=== PATIENT | male | born 1995 | race Caucasian/White ===

== ENCOUNTER 2017-05-12 14:41 | Observation (INO) | payer BC, OTHER ==
[~2017-05-12] VITALS: Ht 177.8 cm; Wt 88.0 kg
[2017-05-12] MEDS ORDERED: SODIUM CHLORIDE 0.9% 1000ML 1,000 ML IV ONE (15:30)
[2017-05-12] MEDS ORDERED: SERT-234 PO (15:30)
[2017-05-12] MEDS ORDERED: FLUT0.15 NAE (15:30)
[2017-05-12] MEDS ORDERED: LORA-741 PO (15:30)
--- NOTE | 2017-05-12 15:40 | EMERGENCY ROOM VISIT NOTE ---
History First contact with patient: 15:17 Chief Complaint: ABDOMINAL PAIN Stated Complaint: ABD. PAIN Nursing Triage Summary: right sided abd pain sent in by urgent care, pain started today History of Present Illness The patient is a 21 year old male who presents to the Emergency Room with complaints of abdominal pain that started at approximately 6 AM this morning. The patient describes it as a cramping sensation. It is in the central abdomen and in the right lower abdomen. He tried to go to class, but the pain kept getting worse. It is exacerbated with movement. He denies any nausea or vomiting. No diarrhea. He had a normal bowel movement yesterday. He denies any fever or chills. He denies any urinary symptoms. The patient was first seen at [facility]. He was sent emergency department for further evaluation. Review of Systems 10 system review performed and negative unless noted in HPI or below Past Medical/Surgical History Medical Problems: (1) No significant active problems Social History Smoking Status: Never Smoker Alcohol Use: occasionally Drug Use: none Marital Status: single Housing Status: lives with roommate Occupation Status: [employer] student Current/Historical Medications Scheduled Fluticasone Propionate (Nasal) (Flonase Allergy Relief), 1 SPRAY AMAN DAILY Sertraline (Zoloft), 100 MG PO QPM Scheduled PRN Lorazepam (Ativan), 0.5 MG PO DAILY PRN for Anxiety Physical Exam Vital Signs Date Time Temp Pulse Resp B/P (MAP) Pulse Ox O2 Delivery O2 Flow Rate FiO2 05/12/17 22:16 53 18 122/64 99 05/12/17 20:44 57 18 133/51 100 05/12/17 18:44 61 18 141/75 99 Room Air 05/12/17 17:50 63 18 125/70 100 Room Air 05/12/17 15:50 63 18 128/72 100 Room Air 05/12/17 14:43 36.9 82 16 132/75 97 Physical Exam VITALS: Vitals are noted on the nurse's note and reviewed by myself. Vital signs stable. GENERAL: 21-year-old male, in no acute distress, nondiaphoretic, well-developed well-nourished. SKIN: The skin was without rashes, erythema, edema, or bruising. HEAD: Normocephalic atraumatic. MOUTH: Mucous membranes moist. NECK: No lymphadenopathy. No JVD. HEART: Regular rate and rhythm without murmurs gallops or rubs. LUNGS: Clear to auscultation bilaterally without wheezes, rales or rhonchi. No accessory muscle use. ABDOMEN: Positive bowel sounds x 4.Soft, tenderness to palpation in the right lower quadrant.organomegaly. No guarding pain with heel tap. Negative Rovsing sign. MUSCULOSKELETAL: No muscle atrophy, erythema, or edema noted. Strength 5/5 throughout. NEURO: Patient was alert and oriented to person place and time. Normal sensation to touch. No focal neurological deficits. Medical Decision & Procedures ER Provider Diagnostic Interpretation: ABD/PELVIS IV AND ORAL CONT HISTORY: 21 years-old Male acute right lower quadrant abdominal pain COMPARISON: None available TECHNIQUE: Multiple axial CT images of the abdomen and pelvis were obtained following the intravenous administration of 120 mL Optiray 320. Oral contrast was also administered. A dose lowering technique was used consistent with the principals of SAVI. FINDINGS: Imaged lung bases are clear with the exception of mild right basilar subsegmental atelectasis. There is no pneumoperitoneum. The imaged inferior cardiac chambers are unremarkable. The liver, gallbladder, spleen, pancreas and adrenal glands appear normal. Bilateral kidneys appear normal. Urinary bladder and prostate are within normal limits. The abdominal aorta is normal in both course and caliber. No bulky retroperitoneal adenopathy. There is no bowel obstruction. There is mild dilation of the mid and distal appendix measuring up to 9 mm with associated mild adjacent inflammatory stranding suggesting early acute appendicitis. No evidence of perforation or abscess. Soft tissues are within normal limits. The bones appear intact. Multilevel Schmorl's nodes are seen within the lower thoracic and upper lumbar spine. IMPRESSION: 1. Mild dilation of the mid and distal appendiceal lumen with surrounding mild inflammatory stranding suggests early acute uncomplicated appendicitis. 2. Multiple Schmorl's nodes of the lower thoracic and upper lumbar spine incidentally noted. These findings could reflect Scheuermann's disease in the appropriate clinical setting. The above report was generated using voice recognition software. It may contain grammatical, syntax or spelling errors. Electronically signed by: Lucio Babcock M.D. 05/12/2017 6:19 PM Dictated Date/Time: 05/12/2017 6:00 PM The status of this report is Signed. Draft = Not yet reviewed or approved by Radiologist. Signed = Reviewed and approved by Radiologist. <AttendingPhy></AttendingPhy> <FamilyPhy>No Doctor, Assigned</FamilyPhy> < PrimaryPhy>No Doctor, Assigned</PrimaryPhy> <UnitNumber>[id number]</UnitNumber> <VisitNumber>[id number]</ Laboratory Results 05/12/17 15:35 Red Blood Count 4.87, Mean Corpuscular Volume 86.0, Mean Corpuscular Hemoglobin 29.8, Mean Corpuscular Hemoglobin Concent 34.6, Mean Platelet Volume 9.1, Neutrophils (%) (Auto) 73.6, Lymphocytes (%) (Auto) 16.1, Monocytes (%) (Auto) 9.4, Eosinophils (%) (Auto) 0.5, Basophils (%) (Auto) 0.1, Neutrophils # (Auto) 10.87, Lymphocytes # (Auto) 2.38, Monocytes # (Auto) 1.39, Eosinophils # (Auto) 0.07, Basophils # (Auto) 0.02 05/12/17 15:35 Test 05/12/17 15:35 05/12/17 15:55 White Blood Count 14.77 K/uL (4.8-10.8) Red Blood Count 4.87 M/uL (4.7-6.1) Hemoglobin 14.5 g/dL (14.0-18.0) Hematocrit 41.9 % (42-52) Mean Corpuscular Volume 86.0 fL (80-100) Mean Corpuscular Hemoglobin 29.8 pg (25-34) Mean Corpuscular Hemoglobin Concent 34.6 g/dl (32-36) Platelet Count 302 K/uL (130-400) Mean Platelet Volume 9.1 fL (7.4-10.4) Neutrophils (%) (Auto) 73.6 % Lymphocytes (%) (Auto) 16.1 % Monocytes (%) (Auto) 9.4 % Eosinophils (%) (Auto) 0.5 % Basophils (%) (Auto) 0.1 % Neutrophils # (Auto) 10.87 K/uL (1.4-6.5) Lymphocytes # (Auto) 2.38 K/uL (1.2-3.4) Monocytes # (Auto) 1.39 K/uL (0.11-0.59) Eosinophils # (Auto) 0.07 K/uL (0-0.5) Basophils # (Auto) 0.02 K/uL (0-0.2) RDW Standard Deviation 38.6 fL (36.4-46.3) RDW Coefficient of Variation 12.2 % (11.5-14.5) Immature Granulocyte % (Auto) 0.3 % Immature Granulocyte # (Auto) 0.04 K/uL (0.00-0.02) Anion Gap 7.0 mmol/L (3-11) Est Creatinine Clear Calc Drug Dose 119.7 ml/min Estimated GFR () 111.4 Estimated GFR (Non- 96.1 BUN/Creatinine Ratio 12.5 (10-20) Calcium Level 9.4 mg/dl (8.5-10.1) Total Bilirubin 0.7 mg/dl (0.2-1) Aspartate Amino Transf (AST/SGOT) 35 U/L (15-37) Alanine Aminotransferase (ALT/SGPT) 40 U/L (12-78) Alkaline Phosphatase 66 U/L (45-117) Total Protein 8.2 gm/dl (6.4-8.2) Albumin 4.5 gm/dl (3.4-5.0) Globulin 3.7 gm/dl (2.5-4.0) Albumin/Globulin Ratio 1.2 (0.9-2) Lipase 95 U/L (73-393) Urine Color YELLOW Urine Appearance CLEAR (CLEAR) Urine pH 7.5 (4.5-7.5) Urine Specific [place] 1.017 (1.000-1.030) Urine Protein NEG (NEG) Urine Glucose (UA) NEG (NEG) Urine Ketones NEG (NEG) Urine Occult Blood NEG (NEG) Urine Nitrite NEG (NEG) Urine Bilirubin NEG (NEG) Urine Urobilinogen NEG (NEG) Urine Leukocyte Esterase NEG (NEG) Medications Administered Medications (Trade) Dose Ordered Sig/Lorne Route Start Time Stop Time Status Last Admin Dose Admin Sodium Chloride 1,000 ml @ 999 mls/hr Q1H1M ONCE IV 05/12/17 15:30 05/12/17 16:30 DC 05/12/17 15:49 999 MLS/HR Piperacillin Sod/ Tazobactam Sod 3.375 gm/Dextrose 115 ml @ 230 mls/hr NOW ONCE IV 05/12/17 20:30 05/12/17 20:59 DC 05/12/17 20:42 230 MLS/HR ED Course Patient was seen and examined Vital signs including blood pressure were reviewed medications list was verified with patient Labs were obtained, and a saline lock was established The patient was hydrated with 1 L of normal saline The patient was reassessed and resting comfortably. He again declined pain medication. CT of the abdomen and pelvis were performed. The findings were reviewed with the patient and the patient's mother. I spoke with general surgery. They agreed to evaluate the patient Dr. Son evaluated the patient in the ED. He was taken to the OR for an appendectomy. Medical Decision DIFFERENTIAL DIAGNOSIS: Gastroenteritis, Hepatitis, cholecystitis, cholangitis, biliary colic, pancreatitis, appendicitis, inguinal hernia, nephrolithiasis, inflammatory bowel disease, mesenteric adenitis, peptic ulcer disease, GERD, gastritis, pancreatitis,, bowel obstruction, splenic infarct, diverticulitis, mesenteric ischemia, metabolic, peritonitis, among others. This patient is a 21-year-old male presents emergency department with complaints of mid and right lower abdominal pain and mild nausea starting this morning. On exam, the patient did have tenderness in the right lower quadrant. There is leukocytosis. A CT of the abdomen and pelvis confirmed an early appendicitis. The patient was taken to the OR by general surgery for an appendectomy. This chart was completed in part utilizing [employer] Voice Speech Voice Recognition software. Attempts were made to minimize the grammatical errors, random word insertions, pronoun errors and incomplete sentences. Any formal questions or concerns about the content, text or information contained within the body of this dictation should be directly addressed to the provider for clarification. Blood Pressure Screening Patient's blood pressure: Normal blood pressure Consults Consulting Physician: Dr. Son Impression Primary Impression: Appendicitis Departure Information Referrals No Doctor, Assigned (PCP) Patient Instructions [facility]
[2017-05-12] MEDS ORDERED: OPTIRAY 320 IV PRN (15:45)
[2017-05-12 15:47] LABS: BASO % 0.1 %; BASO ABS # 0.02 K/uL (0-0.2); COMPLETE YES; EOS % 0.5 %; HEMATOCRIT 41.9 % (42-52); IG% 0.3 %; LYMPH % 16.1 %; LYMPH ABS # 2.38 K/uL (1.2-3.4); MEAN CORPUSCULAR HEMOGLOBIN 29.8 pg (25-34); MEAN CORPUSCULAR HGB CONC 34.6 g/dl (32-36); MEAN PLATELET VOLUME 9.1 fL (7.4-10.4); MONO % 9.4 %; NEUT % 73.6 %; PLATELET COUNT 302 K/uL (130-400); RED BLOOD COUNT 4.87 M/uL (4.7-6.1); WHITE BLOOD COUNT 14.77 K/uL (4.8-10.8)
[2017-05-12 16:03] LABS: BUN/CREATININE RATIO 12.5 (10-20); CALCIUM 9.4 mg/dl (8.5-10.1); CREATININE 1.1 mg/dl (0.60-1.40); POTASSIUM 3.9 mmol/L (3.5-5.1)
[2017-05-12 16:06] LABS: ALB/GLOB RATIO 1.2 (0.9-2)
[2017-05-12 16:13] LABS: URINE APPEARANCE CLEAR (CLEAR); URINE BILIRUBIN NEG (NEG); URINE COLOR YELLOW; URINE NITRITE NEG (NEG); URINE PH 7.5 (4.5-7.5); URINE SPECIFIC GRAVITY 1.017 (1.000-1.030); UROBILINOGEN NEG (NEG)
[2017-05-12 16:14] LABS: MANUAL MICROSCOPIC REQUIRED? NO; REVIEW REQ? NO
--- NOTE | 2017-05-12 18:21 | DIAGNOSTIC IMAGING REPORT ---
ABD/PELVIS IV AND ORAL CONT HISTORY: 21 years-old Male acute right lower quadrant abdominal pain COMPARISON: None available TECHNIQUE: Multiple axial CT images of the abdomen and pelvis were obtained following the intravenous administration of 120 mL Optiray 320. Oral contrast was also administered. A dose lowering technique was used consistent with the principals of SAVI. FINDINGS: Imaged lung bases are clear with the exception of mild right basilar subsegmental atelectasis. There is no pneumoperitoneum. The imaged inferior cardiac chambers are unremarkable. The liver, gallbladder, spleen, pancreas and adrenal glands appear normal. Bilateral kidneys appear normal. Urinary bladder and prostate are within normal limits. The abdominal aorta is normal in both course and caliber. No bulky retroperitoneal adenopathy. There is no bowel obstruction. There is mild dilation of the mid and distal appendix measuring up to 9 mm with associated mild adjacent inflammatory stranding suggesting early acute appendicitis. No evidence of perforation or abscess. Soft tissues are within normal limits. The bones appear intact. Multilevel Schmorl's nodes are seen within the lower thoracic and upper lumbar spine. IMPRESSION: 1. Mild dilation of the mid and distal appendiceal lumen with surrounding mild inflammatory stranding suggests early acute uncomplicated appendicitis. 2. Multiple Schmorl's nodes of the lower thoracic and upper lumbar spine incidentally noted. These findings could reflect Scheuermann's disease in the appropriate clinical setting. The above report was generated using voice recognition software. It may contain grammatical, syntax or spelling errors. Electronically signed by: Lucio Babcock M.D. 05/12/2017 6:19 PM Dictated Date/Time: 05/12/2017 6:00 PM
[2017-05-12] MEDS ORDERED: PIPERACILLIN/TAZOBACTAM 3.375 GM/100ML D5W IV STA (20:14)
[2017-05-12] MEDS ORDERED: PIPERACILL/TAZOBAC IV 3.375 GM in DEXTROSE 5% 100ML IV ONE (20:30)
[2017-05-12] MEDS ORDERED: BUPIVACAINE 0.5 % 5 MG/1 ML MPF 30ML VIAL ONE (21:24)
--- NOTE | 2017-05-12 21:28 | History and Physical ---
History & Physical Date May 12, 2017. Chief Complaint abdominal pain History of Present Illness The patient is a 21 year old male with complaints of abdominal pain. Woke him from sleep this morning. Pain was crampy, periumbilical. Mild anorexia, no nausea or vomiting, no fevers. Loose bm upon arrival to ED. Pain migrated to RLQ. Improved with pain meds in ED, was worse with walking. No prior episodes , no personal or family history of inflammatory bowel disease or colorectal cancer. Past Medical/Surgical History Past Medical History: Depression mild asthma Past Surgical History: wisdom teeth no prior abdominal surgery Social history: [employer] student. Denies tobacco, occasional alcohol Family history: Maternal great grandfather with colon cancer, otherwise no significant family history Additional History Hepatic Disease: No Endocrine Disorder: No Kidney Disease: No Hypertension: No Heart Disease: No Bleeding Tendencies: No Infectious Diseases: No Other: 10 point review of systems completed and negative except as reported above Allergies Coded Allergies: No Known Allergies (Unverified , 11/03/15) Home Medications Scheduled Fluticasone Propionate (Nasal) (Flonase Allergy Relief), 1 SPRAY AMAN DAILY Sertraline (Zoloft), 100 MG PO QPM Scheduled PRN Lorazepam (Ativan), 0.5 MG PO DAILY PRN for Anxiety Physical Examination Skin: warm/dry, no rash Eyes: normal inspection, EOMI, sclerae normal ENT: normal ENT inspection, pharynx normal Head: normocephalic, atraumatic Respiratory/Chest: lungs clear, normal breath sounds, no respiratory distress Cardiovascular: regular rate, rhythm, no edema, no murmur Abdomen / GI: normal bowel sounds, + pertinent finding (soft, tender to palpation in RLQ over Mcburney's point with localized guarding. ) Back: normal inspection Extremities: normal inspection, normal range of motion Neurologic/Psych: no motor/sensory deficits, alert, normal reflexes, oriented x 3 Addiitonal Comments: Last 24 Hours Test 05/12/17 15:35 05/12/17 15:55 White Blood Count 14.77 K/uL Red Blood Count 4.87 M/uL Hemoglobin 14.5 g/dL Hematocrit 41.9 % Mean Corpuscular Volume 86.0 fL Mean Corpuscular Hemoglobin 29.8 pg Mean Corpuscular Hemoglobin Concent 34.6 g/dl Platelet Count 302 K/uL Mean Platelet Volume 9.1 fL Neutrophils (%) (Auto) 73.6 % Lymphocytes (%) (Auto) 16.1 % Monocytes (%) (Auto) 9.4 % Eosinophils (%) (Auto) 0.5 % Basophils (%) (Auto) 0.1 % Neutrophils # (Auto) 10.87 K/uL Lymphocytes # (Auto) 2.38 K/uL Monocytes # (Auto) 1.39 K/uL Eosinophils # (Auto) 0.07 K/uL Basophils # (Auto) 0.02 K/uL RDW Standard Deviation 38.6 fL RDW Coefficient of Variation 12.2 % Immature Granulocyte % (Auto) 0.3 % Immature Granulocyte # (Auto) 0.04 K/uL Sodium Level 137 mmol/L Potassium Level 3.9 mmol/L Chloride Level 103 mmol/L Carbon Dioxide Level 27 mmol/L Anion Gap 7.0 mmol/L Blood Urea Nitrogen 14 mg/dl Creatinine 1.10 mg/dl Est Creatinine Clear Calc Drug Dose 119.7 ml/min Estimated GFR () 111.4 Estimated GFR (Non- 96.1 BUN/Creatinine Ratio 12.5 Random Glucose 94 mg/dl Calcium Level 9.4 mg/dl Total Bilirubin 0.7 mg/dl Aspartate Amino Transf (AST/SGOT) 35 U/L Alanine Aminotransferase (ALT/SGPT) 40 U/L Alkaline Phosphatase 66 U/L Total Protein 8.2 gm/dl Albumin 4.5 gm/dl Globulin 3.7 gm/dl Albumin/Globulin Ratio 1.2 Lipase 95 U/L Urine Color YELLOW Urine Appearance CLEAR Urine pH 7.5 Urine Specific [employer] 1.017 Urine Protein NEG Urine Glucose (UA) NEG Urine Ketones NEG Urine Occult Blood NEG Urine Nitrite NEG Urine Bilirubin NEG Urine Urobilinogen NEG Urine Leukocyte Esterase NEG Imaging: ABD/PELVIS IV AND ORAL CONT HISTORY: 21 years-old Male acute right lower quadrant abdominal pain COMPARISON: None available TECHNIQUE: Multiple axial CT images of the abdomen and pelvis were obtained following the intravenous administration of 120 mL Optiray 320. Oral contrast was also administered. A dose lowering technique was used consistent with the principals of SAVI. FINDINGS: Imaged lung bases are clear with the exception of mild right basilar subsegmental atelectasis. There is no pneumoperitoneum. The imaged inferior cardiac chambers are unremarkable. The liver, gallbladder, spleen, pancreas and adrenal glands appear normal. Bilateral kidneys appear normal. Urinary bladder and prostate are within normal limits. The abdominal aorta is normal in both course and caliber. No bulky retroperitoneal adenopathy. There is no bowel obstruction. There is mild dilation of the mid and distal appendix measuring up to 9 mm with associated mild adjacent inflammatory stranding suggesting early acute appendicitis. No evidence of perforation or abscess. Soft tissues are within normal limits. The bones appear intact. Multilevel Schmorl's nodes are seen within the lower thoracic and upper lumbar spine. IMPRESSION: 1. Mild dilation of the mid and distal appendiceal lumen with surrounding mild inflammatory stranding suggests early acute uncomplicated appendicitis. 2. Multiple Schmorl's nodes of the lower thoracic and upper lumbar spine incidentally noted. These findings could reflect Scheuermann's disease in the appropriate clinical setting. The above report was generated using voice recognition software. It may contain grammatical, syntax or spelling errors. Electronically signed by: Lucio Babcock M.D. 05/12/2017 6:19 PM Dictated Date/Time: 05/12/2017 6:00 PM Diagnosis Appendicitis, acute, non perforated with localized peritonitis ASA Classification: ASA Class II Plan of Treatment plan for laparoscopic appendectomy tonight in OR zosyn given in ED risks discussed to include bleeding, infection, need for future or more extensive surgery, conversion to open, normal appendix, abscess, hernia, and risks of anesthesia. admit to med/surg floor for observation post op advance diet as tolerated after surgery likely d/c in AM
[2017-05-12] MEDS ORDERED: FENTANYL CITRATE INJ 50 MCG/1 ML 2 ML VIAL ONE (22:31)
[2017-05-12] MEDS ORDERED: PROPOFOL IV EMULSION 10 MG/ML 20 ML VIAL IV ONE (22:31)
[2017-05-12] MEDS ORDERED: SUCCINYLCHOLINE 100MG/5ML SYR IV ONE (22:31)
[2017-05-12] MEDS ORDERED: MIDAZOLAM HCL 1 MG/ML 2ML VIAL ONE (22:31)
[2017-05-12] MEDS ORDERED: ROCURONIUM BROMIDE 10 MG/ML 5 ML VIAL ONE (22:31)
[2017-05-12] MEDS ORDERED: LIDOCAINE HCL 2% 2 ML VIAL (20MG/ML) ONE (22:57)
[2017-05-12] MEDS ORDERED: ONDANSETRON INJ 2 MG/ML 2 ML VIAL ONE (22:58)
[2017-05-12] MEDS ORDERED: DEXAMETHASONE SOD INJ 4 MG/ML VIAL ONE (22:58)
[2017-05-12] MEDS ORDERED: NEOSTIGMINE METHYLSULFATE 5 MG/5 ML SYR ONE (23:13)
[2017-05-12] MEDS ORDERED: GLYCOPYRROLATE INJ 0.2 MG/ML VIAL ONE (23:13)
--- NOTE | 2017-05-12 23:32 | [facility] Post Operative Brief Note ---
Immediate Operative Summary Operative Date May 12, 2017. Pre-Operative Diagnosis Acute appendicitis Post-Operative Diagnosis Acute appendicitis Procedure(s) Performed Laparoscopic appendectomy Surgeon Dr. Real Son Partner Alliance Manager Surgeon(s) none Estimated Blood Loss 3 mL Findings early acute, suppurative, non perforated appendicitis Fluids (cc crystalloids) 800cc Specimens Appendix and contents Drains none Anesthesia GETA Complication(s) None Disposition Recovery Room / PACU
[2017-05-12] MEDS ORDERED: IV FLUIDS COMPLETED PRN (23:45)
[2017-05-12] MEDS ORDERED: ALBUTEROL HFA 8 GM INHALER INH PRN (23:45)
[2017-05-12] MEDS ORDERED: MoRPHine SULFATE 4 MG/ML 1 ML CARP\\VIAL IV PRN ×2 (23:45)
[2017-05-12] MEDS ORDERED: ONDANSETRON INJ 2 MG/ML 2 ML VIAL IV PRN (23:45)
[2017-05-12] MEDS ORDERED: OXYCODONE/ACETAMINOPHEN 5-325 TAB PO PRN ×2 (23:45)
[2017-05-13] VITALS (8 sets, daily range): BP systolic 99–126; BP diastolic 49–73; PULSE 52–79; TEMP 36.3–37; O2SAT 96–98; Ht 177.8 cm; Wt 88.0 kg
[2017-05-13] MEDS ORDERED: HYDROmorphone INJ 1 MG/ML SYR IV PRN
[2017-05-13] MEDS ORDERED: EpHEDrine SULFATE INJ 50 MG/ML AMP IV PRN
[2017-05-13] MEDS ORDERED: ATROPINE SULFATE 0.1 MG/ML 5ML SYR IV PRN
[2017-05-13] MEDS ORDERED: ONDANSETRON INJ 2 MG/ML 2 ML VIAL IV PRN
[2017-05-13] MEDS ORDERED: FENTANYL CITRATE INJ 50 MCG/1 ML 2 ML VIAL IV PRN
[2017-05-13] MEDS ORDERED: PROMETHAZINE HCL INJ 12.5 MG in SODIUM CHLORIDE 0.9% 50ML 50 ML IV PRN ×2
--- NOTE | 2017-05-13 00:10 | [facility] Operative Report ---
Operative Report Operative Date May 12, 2017. Pre-Operative Diagnosis Acute appendicitis Post-Operative Diagnosis Acute suppurative non perforated appendicitis Procedure(s) Performed Laparoscopic appendectomy Surgeon Dr. Real Son Steam Table Associate Surgeon(s) none Estimated Blood Loss 3 mL Findings Early non perforated appendicitis, minimal turbid fluid in the pelvis, good hemostasis. Fluids 800cc Specimens Appendix and contents Drains none Anesthesia GETA Complication(s) None Disposition Recovery Room / PACU Indications 21-year-old otherwise healthy male presented with signs and symptoms consistent with acute appendicitis, confirmed by CT scan. Plan for laparoscopic appendectomy. Description of Procedure The patient was appropriately identified, consented, and taken to the operating room where he was placed in the supine position with the left arm tucked. Preoperative antibiotics were administered in the emergency room. General endotracheal anesthesia was induced. SCDs were placed. The patient voided prior to coming back to the OR so no Zamorano catheter was placed. The abdomen was prepped and draped in standard sterile fashion. Surgical time-out was performed and all parties were in agreement as to the correct patient and procedure to be performed and we continued as planned. Local anesthetic was injected at the incision sites. A curvilinear infraumbilical incision was made with a knife and deepened down to the subcutaneous tissue with electrocautery. The base of the umbilicus was grasped with a Yessy and elevated toward the ceiling. Incision was made in the midline fascia inferior to the umbilicus and entry into the peritoneum was confirmed. [id number] 0 Vicryl suture was placed as a stay suture and was later used to close the fascial defect. A Yoo trocar was placed and the abdomen was insufflated with carbon dioxide which the patient tolerated without incident. The laparoscope was inserted and the abdomen was inspected. No damage from initial trocar placement was noted and is there was no significant abnormalities in the 4 quadrants of the abdomen. The patient was placed in the Trendelenburg position and rotated towards the left. The appendix then came into view and appeared mildly indurated with no evidence of perforation. The appendix was grasped and elevated towards the anterior abdominal wall and a window was created in the mesoappendix near the base of the appendix. A gould loaded 30 millimeter stapler was used to divide the appendix at its base. The mesoappendix was then divided with a 45 millimeter gould load stapler. There was a small amount of bleeding in the mesoappendix staple line which was controlled with 5 millimeter clips. The right lower quadrant was gently irrigated and suctioned. Hemostasis appeared to be good. The pelvis was inspected and there was a small amount of turbid fluid that was suctioned and gently irrigated. The appendix was placed in an Endo-Catch bag and removed through the periumbilical port site. Ports were removed under direct visualization and hemostasis was good. The periumbilical port was removed and the abdomen was allowed to collapse. The previously placed 0 Vicryl suture was then used to close the fascia at the umbilical port site. The wound was irrigated and hemostasis confirmed. The skin was then closed with 4-0 Monocryl subcuticular sutures. Dermabond was placed over the incisions. The patient was extubated in the operating room and taken to the recovery area where he recovered without incident. All sponge, needle, and instrument counts were correct at the conclusion of the case. The patient tolerated the procedure without incident. I attest to the content of the Intraoperative Record and any orders documented therein. Any exceptions are noted below.
[2017-05-13] MEDS: LACTATED RINGER'S 1000ML 1,000 ML IV SCH ×2 (01:27→08:37)
[2017-05-13] MEDS: KETOROLAC TROMETHAMINE 15 MG/ML VIAL IV. SCH ×2 (01:43→08:36)
--- NOTE | 2017-05-13 02:22 | Anesthesiology Progress Note ---
Anesthesia Post Op Note Date & Time May 13, 2017 at 02:22 Vital Signs Pain Intensity: 6.0 Vital Signs Past 12 Hours Date Time Temp Pulse Resp B/P (MAP) Pulse Ox O2 Delivery O2 Flow Rate FiO2 05/13/17 01:40 36.3 65 16 121/73 (89) 96 Room Air 05/13/17 01:10 37.0 52 16 112/64 (80) 97 Room Air 05/13/17 00:40 37.0 61 16 126/72 96 Room Air 05/13/17 00:40 37.0 61 16 126/72 (90) 98 Room Air 05/13/17 00:40 96 Room Air 05/13/17 00:30 36.6 55 18 140/80 (94) 96 Room Air 0 05/13/17 00:15 55 18 140/86 (94) 98 Room Air 0 05/13/17 00:06 36.8 57 18 139/79 100 Oxymask 2 05/13/17 00:00 36.8 60 18 144/83 100 Oxymask 4 05/12/17 23:50 37 18 140/82 100 Oxymask 4 05/12/17 22:16 53 18 122/64 99 05/12/17 20:44 57 18 133/51 100 05/12/17 18:44 61 18 141/75 99 Room Air 05/12/17 17:50 63 18 125/70 100 Room Air 05/12/17 15:50 63 18 128/72 100 Room Air 05/12/17 14:43 36.9 82 16 132/75 97 Notes Mental Status: alert / awake / arousable Pt Amnestic to Procedure: Yes Nausea / Vomiting: adequately controlled Pain: adequately controlled Airway Patency, RR, SpO2: stable & adequate BP & HR: stable & adequate Hydration State: stable & adequate Anesthetic Complications: no major complications apparent
--- NOTE | 2017-05-13 08:07 | Surgery Progress Note ---
Surgery Progress Note Date of Service May 13, 2017. Subjective Post OP Day: 1 21 year old male POD#1 lap appendectomy. Doing well, pain well controlled, no issues, tolerating liquids and will eat breakfast this morning. Objective Vital Signs: Date Time Temp Pulse Resp B/P (MAP) Pulse Ox O2 Delivery O2 Flow Rate FiO2 05/13/17 07:57 97 Room Air 05/13/17 07:55 36.6 60 12 116/68 (84) 97 Room Air 05/13/17 03:40 36.7 79 16 99/52 (68) 96 Room Air 05/13/17 02:40 36.5 67 16 105/49 (67) 96 Room Air 05/13/17 01:40 36.3 65 16 121/73 (89) 96 Room Air 05/13/17 01:10 37.0 52 16 112/64 (80) 97 Room Air 05/13/17 00:40 Room Air 05/13/17 00:40 37.0 61 16 126/72 96 Room Air 05/13/17 00:40 37.0 61 16 126/72 (90) 98 Room Air 05/13/17 00:40 96 Room Air 05/13/17 00:30 36.6 55 18 140/80 (94) 96 Room Air 0 05/13/17 00:15 55 18 140/86 (94) 98 Room Air 0 05/13/17 00:06 36.8 57 18 139/79 100 Oxymask 2 05/13/17 00:00 36.8 60 18 144/83 100 Oxymask 4 05/12/17 23:50 37 18 140/82 100 Oxymask 4 05/12/17 22:16 53 18 122/64 99 05/12/17 20:44 57 18 133/51 100 05/12/17 18:44 61 18 141/75 99 Room Air 05/12/17 17:50 63 18 125/70 100 Room Air 05/12/17 15:50 63 18 128/72 100 Room Air 05/12/17 14:43 36.9 82 16 132/75 97 General Appearance: WD/WN, no apparent distress Head: normocephalic, atraumatic Neck: supple, no adenopathy, thyroid normal, no JVD, no carotid bruits, trachea midline Respiratory/Chest: chest non-tender, lungs clear, normal breath sounds, no respiratory distress, no accessory muscle use Cardiovascular: regular rate, rhythm, no edema, no gallop, no JVD, no murmur Abdomen: normal bowel sounds, non distended, soft, no organomegaly, no pulsatile mass, + tenderness (appropriate TTP) Incision(s): clean, dry, intact, no erythema, no drainage Extremities: normal range of motion, non-tender, normal inspection, no pedal edema, no calf tenderness, normal capillary refill, pelvis stable Laboratory Results: Results Past 24 Hours Test 05/12/17 15:35 05/12/17 15:55 Range/Units White Blood Count 14.77 4.8-10.8 K/uL Red Blood Count 4.87 4.7-6.1 M/uL Hemoglobin 14.5 14.0-18.0 g/dL Hematocrit 41.9 42-52 % Mean Corpuscular Volume 86.0 80-100 fL Mean Corpuscular Hemoglobin 29.8 25-34 pg Mean Corpuscular Hemoglobin Concent 34.6 32-36 g/dl Platelet Count 302 130-400 K/uL Mean Platelet Volume 9.1 7.4-10.4 fL Neutrophils (%) (Auto) 73.6 % Lymphocytes (%) (Auto) 16.1 % Monocytes (%) (Auto) 9.4 % Eosinophils (%) (Auto) 0.5 % Basophils (%) (Auto) 0.1 % Neutrophils # (Auto) 10.87 1.4-6.5 K/uL Lymphocytes # (Auto) 2.38 1.2-3.4 K/uL Monocytes # (Auto) 1.39 0.11-0.59 K/uL Eosinophils # (Auto) 0.07 0-0.5 K/uL Basophils # (Auto) 0.02 0-0.2 K/uL RDW Standard Deviation 38.6 36.4-46.3 fL RDW Coefficient of Variation 12.2 11.5-14.5 % Immature Granulocyte % (Auto) 0.3 % Immature Granulocyte # (Auto) 0.04 0.00-0.02 K/uL Sodium Level 137 136-145 mmol/L Potassium Level 3.9 3.5-5.1 mmol/L Chloride Level 103 98-107 mmol/L Carbon Dioxide Level 27 21-32 mmol/L Anion Gap 7.0 3-11 mmol/L Blood Urea Nitrogen 14 7-18 mg/dl Creatinine 1.10 0.60-1.40 mg/dl Est Creatinine Clear Calc Drug Dose 119.7 ml/min Estimated GFR () 111.4 Estimated GFR (Non- 96.1 BUN/Creatinine Ratio 12.5 10-20 Random Glucose 94 70-99 mg/dl Calcium Level 9.4 8.5-10.1 mg/dl Total Bilirubin 0.7 0.2-1 mg/dl Aspartate Amino Transf (AST/SGOT) 35 15-37 U/L Alanine Aminotransferase (ALT/SGPT) 40 12-78 U/L Alkaline Phosphatase 66 45-117 U/L Total Protein 8.2 6.4-8.2 gm/dl Albumin 4.5 3.4-5.0 gm/dl Globulin 3.7 2.5-4.0 gm/dl Albumin/Globulin Ratio 1.2 0.9-2 Lipase 95 73-393 U/L Urine Color YELLOW Urine Appearance CLEAR CLEAR Urine pH 7.5 4.5-7.5 Urine Specific [place] 1.017 1.000-1.030 Urine Protein NEG NEG Urine Glucose (UA) NEG NEG Urine Ketones NEG NEG Urine Occult Blood NEG NEG Urine Nitrite NEG NEG Urine Bilirubin NEG NEG Urine Urobilinogen NEG NEG Urine Leukocyte Esterase NEG NEG Assessment & Plan A: POD#1 lap appendectomy, doing well P: discharge today if tolerates breakfast follow up in 2 weeks in general surgery clinic rx for percocet motrin for pain, colace return precautions given call clinic with questions or concerns Nicolasa Son,
[2017-05-13] MEDS ORDERED: OXYC-57 PO (08:18)
--- NOTE | 2017-05-13 08:33 | Discharge Instructions ---
Discharge Instructions Date of Service May 13, 2017. Admission Reason for Admission: Appendicitis Discharge Discharge Diagnosis / Problem: appendicitis Discharge Goals Goal(s): Improve function Activity Recommendations Activity Limitations: per Instructions/Follow-up section Exercise/Sports Limitations: gradually increase as tolerated May Resume Sexual Activity: after two weeks . Instructions / Follow-Up Instructions / Follow-Up Appendectomy Post-Operative Instructions Please read over this material carefully. While instructions may vary from patient to patient, the material should provide you with a general idea of things to do to help you get well after your surgery. Activity You will likely feel tired for at least 1 week after your surgery. Take your pain medicine as needed in order to stay active, but rest as needed for recovery. Take short walks 2-3 times a day. This will help reduce the risk of blood clots following surgery. You may use the stairs as needed as long as you are not dizzy or weak. Make sure someone is around the first few times you use the stairs or exercise. Driving Do not drive until you have been seen for your first post-operative clinic office visit. Unless told otherwise, you may drive after your first visit and when you can react safely in an emergency situation. You must not be taking pain medicines stronger than regular Tylenol (acetaminophen) at the time you are driving, nor should you have a great deal of pain, as this will affect your ability to react quickly. Also: do not take the narcotic pain medications such as Tylenol #3 ( acetaminophen with codeine) or Percocet (oxycodone) or lortab (hydrocodone) and plain Tylenol (acetaminophen) at the same time as Tylenol is in both of them. You should limit the total Tylenol dosage to 3,000 mg per 24 hours. If you are trying to take yourself off of the narcotic pain medication by switching to Tylenol, allow 6 hours between doses. Lifting/Coughing Practice 10 deep breaths every hour and 2 coughs every hour, (for at least 12 hours a day), for the first week after surgery. This will decrease your risk of lung problems or pneumonia. Do not lift heavy objects (more than 20-25 pounds) for the first 4 weeks. Also avoid pushing, pulling or abdominal pressure for these first 4 weeks. When coughing, be sure to place a pillow over the incision and gently press inward to reduce the pressure (from coughing) on your incision. Medications Use your pain medicine as prescribed. Narcotic pain medications should be used sparingly, Pain medications may cause nausea on an empty stomach so we recommend you take with it food. The prescription pain medication also universally causes constipation. You may switch to plain Tylenol and/or ibuprofen if you have no medical reasons why you cannot use these medications. If you are feeling constipated and have not had a bowel movement by the 2nd day after surgery, you may take 1 ounce of Milk of Magnesia in the morning, until you are more regular. Incisions If your incisions have been closed with and a special skin glue over the incision-the skin glue will dissolve on its own. Do not try to remove it from your skin. If you have guillermina in place, please call the office to have them removed by about 7-10 days after surgery with his nurse. You may shower the day after surgery and allow clean, soapy water to run over your incision but do not soak your incisions in water (no hot tub, bathtub or swimming pools) for the first week after surgery. Do not put any ointment or creams over the incisions for the first 2 weeks after surgery or while the incision is open, draining or scabbed. Diet You should only eat frequent small amounts of food for at least a few days after your surgery. It is more important to hydrate yourself than to eat much. When you are able to return to normal food, you may wish to avoid fatty or heavy foods for the first few days. Some of these foods may cause diarrhea or nausea following surgery. You may also find it helpful to consume more fruits and vegetables after surgery to help to avoid constipation. Follow Up You should follow up in the clinic about 2 weeks after your surgery. You may be seen sooner if decided by the surgical team. Please call the office at to schedule your follow up visits. PRECAUTIONS When Should I call the Physician? Diarrhea: Occasional loose bowel movements are not uncommon. However, constant watery diarrhea, especially with fever, can mean there is an infection of the bowels. Fever with or without cough: This could be a sign of lung, wound or stomach infection. Elevated heart rate: If your heart rate is more than 100 beats per minute, this could be a sign of infection. Sudden shortness of breath and/or chest pain: This could be related to a heart problem, such as a heart attack, or could be related to a blood clot to the lung (pulmonary embolus) or a lung infection. Leg swelling and pain: Blood clot formation in the leg, particularly if it is on one side, could cause swelling with pain in the calf. Passing out: This could be a sign of low blood pressure, which could be caused by blood loss, low blood sugar or other causes. Wound drainage: Gold colored drainage is normal. If you develop drainage from your wound that is thick, greenish-brown color, has a foul odor, redness, and/or tenderness, it may be a sign that your wound is infected. Call your doctor. For urgent matters, you may call and ask to have the doctor motion picture scene builder paged. Please remove call block from your phone and refrain from using your phone so that the physician may return your call promptly. Current Hospital Diet Patient's current hospital diet: Regular Diet Discharge Diet Recommended Diet: Regular Diet Procedures Procedures Performed: Laparoscopic appendectomy Pending Studies Studies pending at discharge: yes List of pending studies: pathology for appendix School Instructions Return To School: after follow-up Medical Emergencies . Who to Call and When: Medical Emergencies: If at any time you feel your situation is an emergency, please call 911 immediately. . Non-Emergent Contact Non-Emergency issues call your: Surgeon Past History Medical & Surgical History: (1) Appendicitis . "Provider Documentation" section prepared by Real Son. . VTE Core Measure Inpt VTE Proph given/why not?: SCD's [place] Drug Monitoring Program Search Results: patient reviewed within database, no issues identified
--- NOTE | 2017-05-13 08:43 | Discharge Summary ---
Discharge Summary Date of Service May 13, 2017. Admission Date/Reason May 12, 2017 at 23:39 Appendicitis. Discharge Date/Disposition May 13, 2017 Home Diagnosis Principal Diagnosis: appendicitis Procedure(s) Performed laparoscopic appendectomy Medication Reconciliation New Medications: Oxycodone/Acetaminophen 5MG/325MG (Percocet 5MG/325MG) Tab 1-2 TAB PO Q6H PRN for Pain, #20 TAB PAIN Continued Medications: Fluticasone Propionate (Nasal) (Flonase Allergy Relief) 50 Mcg/Act Spr 1 SPRAY AMAN DAILY Lorazepam (Ativan) 0.5 Mg Tab 0.5 MG PO DAILY PRN for Anxiety, TAB Sertraline (Zoloft) 100 Mg Tab 100 MG PO QPM, TAB Admission Physical Exam As per Admitting History & Physical. Hospital Course (1) Appendicitis Patient admitted with appendicitis and underwent uncomplicated laparoscopic appendectomy on 12 May 2017. He was admitted to the floor for observation post op. He tolerated a regular diet, pain was controlled, and he was ambulating. he was discharged to home and will follow up in 2 weeks. Discharge Instructions Please refer to the electronic Patient Visit Report (Discharge Instructions) for additional information.
== END 2017-05-13 09:54 | disposition home or self-care (01) ==
LOC: C.EDB 14:42 → C.MSW 23:39 → SUATTDRO 05-13 00:13
PROVIDERS: ADMIT Surgery; ATTEND Surgery
DX: K35.80 Unspecified acute appendicitis (principal); F32.9 Major depressive disorder, single episode, unspecified; J45.909 Unspecified asthma, uncomplicated; Z80.0 Family history of malignant neoplasm of digestive organs